=== PATIENT | female | born 1965 | race Caucasian/White ===

== ENCOUNTER 2018-06-21 17:40 | Emergency (ER) | payer BC ==
[2018-06-21] MEDS ORDERED: Nicotine Inhaler* 10 MG AMP INH PRN ×2 (17:57→22:17)
--- NOTE | 2018-06-21 18:06 | ED ---
Psychiatric Complaint - HPI Summary HPI Summary: A 52 y/o female presents to [facility] with a chief complaint of being brought in by police on a 941. The patient reports that she has been hearing spirits for five years but claims that they have been getting worse. She reports that she has been taking medication for the voices, but it does not alleviate her symptoms. She denies SI or HI but claims that her spirits threaten everything. She denies any smoking, drugs or EtOH use. She is unsure of her FHx. - History Of Current Complaint Chief Complaint: EDMentalHealth Time Seen by Provider: 06/21/18 17:57 Hx Obtained From: Patient, Other: - police Onset/Duration: Gradual Onset, Lasting Weeks, Still Present Timing: Weeks Severity Initially: Mild Severity Currently: Mild Character: Anxious Aggravating Factor(s): Nothing Alleviating Factor(s): Nothing Associated Signs And Symptoms: Positive: Hallucinating Related History: Positive For: Prior Psychiatric Issues Has Suicidal: Denies: Thoughts Has Homicidal: Denies: Thoughts - Allergies/Home Medications Allergies/Adverse Reactions: Allergies Allergy/AdvReac Type Severity Reaction Status Date / Time No Known Allergies Allergy Verified 06/21/18 17:48 Home Medications: Home Medications FLUoxetine CAP* [PROzac CAP*] 60 mg PO DAILY 06/21/18 [History Confirmed ] LORazepam TAB(*) [Ativan 1 MG TAB (*)] 2 mg PO BID MDD 2 mg 06/21/18 [History Confirmed 06/21/18] PMH/Surg Hx/FS Hx/Imm Hx Sensory History: Denies: Hx Deafness EENT History: Denies: Hx Deafness Psychiatric History: Reports: Other Psychiatric Issues/Disorders - on medication for hearing spirits Infectious Disease History: No Infectious Disease History: Denies: Traveled Outside the [place] in Last 30 Days - Family History Known Family History: Positive: Unknown - Social History Alcohol Use: None Hx Substance Use: No Substance Use Type: Reports: None Hx Tobacco Use: No Review of Systems Negative: Fever Psychological: Other - positive: brought in by police on a 941, "hearing spirits ". Positive: Other - negative: SI or HI All Other Systems Reviewed And Are Negative: Yes Physical Exam - Summary Physical Exam Summary: VITAL SIGNS: Reviewed. GENERAL: Patient is a well-developed and nourished FEMALE who is lying comfortable in the stretcher. Patient is not in any acute respiratory distress. HEAD AND FACE: No signs of trauma. No ecchymosis, hematomas or skull depressions. No sinus tenderness. EYES: PERRLA, EOMI x 2, No injected conjunctiva, no nystagmus. EARS: Hearing grossly intact. Ear canals and tympanic membranes are within normal limits. MOUTH: Oropharynx within normal limits. NECK: Supple, trachea is midline, no adenopathy, no JVD, no carotid bruit, no c- spine tenderness, neck with full ROM. CHEST: Symmetric, no tenderness at palpation LUNGS: Clear to auscultation bilaterally. No wheezing or crackles. CVS: Regular rate and rhythm, S1 and S2 present, no murmurs or gallops appreciated. ABDOMEN: Soft, non-tender. No signs of distention. No rebound no guarding, and no masses palpated. Bowel sounds are normal. EXTREMITIES: FROM in all major joints, no edema, no cyanosis or clubbing. NEURO: Alert and oriented x 3. No acute neurological deficits. Speech is normal and follows commands. SKIN: Dry and warm Psych: delusional with visual and auditory hallucinations Triage Information Reviewed: Yes Vital Signs On Initial Exam: Initial Vitals Temp Pulse Resp BP Pulse Ox 99 F 96 16 142/83 98 06/21/18 17:44 06/21/18 17:44 06/21/18 17:44 06/21/18 17:44 06/21/18 17:44 Vital Signs Reviewed: Yes Diagnostics - Vital Signs Vital Signs Temp Pulse Resp BP Pulse Ox 06/21/18 17:44 99 F 96 16 142/83 98 - Laboratory Result Diagrams: 06/21/18 18:30 06/21/18 18:30 Lab Statement: Any lab studies that have been ordered have been reviewed, and results considered in the medical decision making process. Re-Evaluation - Re-Evaluation First Eval Re-Evaluation Time: 18:01 Change: Unchanged Comment: Patient cleared for MHE. Course/Dx - Course Assessment/Plan: Blood work w/o a significant abnormality. She is medically cleared. She is awaiting for a MHE. Patient is hemodynamically stable and A+O x 3. SHe will be signed out to Dr. Aquino at shift change. - Differential Dx/Clinical Impression Differential Diagnosis/HQI/PQRI: Positive: Acute Psychosis Provider Diagnosis: Psychosis Discharge - Sign-Out/Discharge Documenting (check all that apply): Sign-Out Patient Signing out patient TO: Terry Aquino - pending MHE Patient Received Moderate/Deep Sedation with Procedure: No - Discharge Plan Condition: Stable Disposition: PSYCHIATRIC FACILITY-OTHER Referrals: No Primary Care Phys,NOPCP [Primary Care Provider] - - Billing Disposition and Condition Condition: STABLE Disposition: Psychiatric Facility Other - Attestation Statements Document Initiated by Scribe: Yes Documenting Scribe: Daniel Hill Provider For Whom Uche is Documenting (Include Credential): Francisco Eid MD Scribe Attestation: IDaniel, scribed for Francisco Eid MD on 06/23/18 at 0815. Scribe Documentation Reviewed: Yes Provider Attestation: The documentation as recorded by the Daniel matute accurately reflects the service I personally performed and the decisions made by me, Francisco Eid MD Status of Scribe Document: Viewed
[2018-06-21 18:38] LABS: ABS Basophils 0.1 10^3/ul (0-0.2); ABS Eosinophils 0 10^3/ul (0-0.6); ABS Lymphocytes 1.9 10^3/ul (1.0-4.8); ABS Monocytes 0.5 10^3/ul (0-0.8); ABS Neutrophils 4.5 10^3/ul (1.5-7.7); ABS Nucleated RBC 0 10^3/ul; Eosinophil % 0.3 %; Hematocrit 42 % (33-41); Hemoglobin 14.5 g/dL (12.0-16.0); Lymphocyte % 26.4 %; Mean Corpuscular HGB Conc 35 g/dL (31-36); Mean Corpuscular Hemoglobin 32 pg (27-31); Mean Corpuscular Volume 94 fL (80-97); Mean Platelet Volume 9.5 fL (7.4-10.4); Nucleated Red Blood Cells % 0.1; Platelet Count 212 10^3/uL (150-450); Red Blood Count 4.49 10^6 /uL (3.70-4.87); Red Cell Distribution Width 12 % (10.5-15)
[2018-06-21 18:54] LABS: ALT 21 U/L (7-52); AST 23 U/L (13-39); Albumin 4.6 g/dL (3.2-5.2); Albumin/Globulin Ratio 1.7 (1-3); Alkaline Phosphatase 52 U/L (34-104); Anion Gap 11 mmol/L (2-11); BUN/Creatinine Ratio 6.1 (8-20); Blood Urea Nitrogen 4 mg/dL (6-24); CO2 Carbon Dioxide 26 mmol/L (22-32); Calcium 9.9 mg/dL (8.6-10.3); Chloride 103 mmol/L (101-111); EGFR African American 112.9 (>60); EGFR Non-African American 93.3 (>60); Globulin 2.7 g/dL (2-4); Glucose 105 mg/dL (70-100); Potassium 3.6 mmol/L (3.5-5.0); Sodium 140 mmol/L (135-145); Total Protein 7.3 g/dL (6.4-8.9)
[2018-06-21 19:04] LABS: Alcohol < 10 mg/dL (<10); Salicylate < 2.50 mg/dL (<30)
[2018-06-21 19:16] LABS: TSH (Thyroid Stimulating Horm) 1.07 mcIU/mL (0.34-5.60)
[2018-06-21] MEDS ORDERED: Mouth Piece, Nicotine* 1 EACH CARTRIDGE INH PRN (19:31)
[2018-06-21 19:32] LABS: Acetaminophen 2 mcg/mL
--- NOTE | 2018-06-21 20:25 | ED ---
Progress - Progress Note Progress Note: This pt was signed out by Dr. Eid at shift change, pending disposition, awaiting mental health evaluation. Pt had a mental health evaluation and her case was reviewed by Dr. Solomon, psychiatrist. Dr. Solomon will admit the pt on an involuntary status but due to no [place] availability [place] [facility] [place] need to be transferred. Dx: psychosis NOS. Pt will be transferred to [facility]. EKG at 22:29 Rate: Normal at 86 bpm Rhythm: Sinus Rhythm Nonspecific T wave changes Re-Evaluation - Re-Evaluation First Eval Re-Evaluation Time: 12:20 Change: Worse Comment: Pt attempted to leave the ER. Course/Dx - Course Course Of Treatment: This pt was signed out by Dr. Eid at shift change, pending disposition, awaiting mental health evaluation. Pt had a mental health evaluation and her case was reviewed by Dr. Solomon, psychiatrist. Dr. Solomon will admit the pt on an involuntary status but due to no bed availability at [facility] pt will need to be transferred. Dx: psychosis NOS. Pt will be transferred to [facility]. - Diagnoses Provider Diagnoses: Psychosis - Provider Notifications Discussed Care Of Patient With: Liane Marin MD Time Discussed With Above Provider: 00:40 Instructed by Provider To: Admit As Inpatient - Accepted at [facility]. Discharge - Sign-Out/Discharge Documenting (check all that apply): Patient Departure - Transfer, Receiving Sign -Out Receiving patient FROM: Francisco Eid Patient Received Moderate/Deep Sedation with Procedure: No - Discharge Plan Condition: Stable Disposition: PSYCHIATRIC FACILITY-OTHER Referrals: No Primary Care Phys,NOPCP [Primary Care Provider] - - Billing Disposition and Condition Condition: STABLE Disposition: Psychiatric Facility Other - Attestation Statements Document Initiated by Scribe: Yes Documenting Scribe: Tory Lopez Provider For Whom Uche is Documenting (Include Credential): Terry Aquino MD Scribe Attestation: Tory Jernigan scribed for Terry Aquino MD on 06/22/18 at 0519. Scribe Documentation Reviewed: Yes Provider Attestation: The documentation as recorded by the Tory matute accurately reflects the service I personally performed and the decisions made by , Terry Aquino MD Status of Scribe Document: Viewed
[2018-06-21] MEDS ORDERED: LORazepam TAB(*) 1 MG PO ONE (22:26)
[2018-06-21 23:08] LABS: Urine Appearance Clear; Urine Bacteria Absent (Absent); Urine Bilirubin Negative (Negative); Urine Blood 1+ (Negative); Urine Color Yellow; Urine Glucose Negative (Negative); Urine Ketones 1+ (Negative); Urine Nitrite Negative (Negative); Urine Protein Negative (Negative); Urine Red Blood Cell Absent (Absent); Urine Specific Gravity 1.004 (1.010-1.030); Urine Squamous Epithelial Cell Present (Absent); Urine Urobilinogen Negative (Negative); Urine White Blood Cell Absent (Absent)
[2018-06-21 23:16] LABS: Barbiturates Urine Screen None Detected (None Detect); Benzodiazepine Urine Screen None Detected (None Detect); Urine Cannabinoids Screen None Detected (None Detect)
[2018-06-22] MEDS ORDERED: LORazepam TAB(*) 1 MG PO ONE (08:13)
[2018-06-22] MEDS ORDERED: LORazepam TAB(*) 1 MG ONE (08:15)
[2018-06-22 08:26] VITALS: BP 120/78
== END 2018-06-22 07:00 ==
LOC: ED 17:40
DX: F29 Unspecified psychosis not due to a substance or known physiological condition (principal); R94.31 Abnormal electrocardiogram [ECG] [EKG]; Z79.899 Other long term (current) drug therapy
CPT/HCPCS: 36415; 80053; 80307; 80320; 80329; 81003; 81015; 84443; 85025; 93005; 99285; A9270-GY; G0480